=== PATIENT | female | born 1970 | race Caucasian/White ===

== ENCOUNTER 2020-06-20 11:28 | Emergency (ER) | payer OTHER, SELFPAY ==
[2020-06-20 11:29] VITALS: BP 119/75; PULSE 77; RESP 17; TEMP 36.4; O2SAT 97; BMI 36.1
--- NOTE | 2020-06-20 11:49 | RAD_ITS ---
STUDY: X-RAY - RIGHT KNEE REASON FOR EXAM: Female, 50 years old. Injury/Pain TECHNIQUE: 4 view(s) of the knee. COMPARISON: None. FINDINGS: Normal visualized distal femur. Normal visualized proximal tibia and fibula. Normal proximal tibiofibular articulation. There is no demonstrated fracture. Normal medial femorotibial compartment. Normal lateral femorotibial compartment. There is mild degenerative arthrosis of the patellofemoral articulation. The soft tissue structures are unremarkable. RAD/Knee 4 or More Views IMPRESSION: No fracture. Mild patellofemoral arthrosis. Electronically Signed: Edwin Bustos MD at 12:54 EDT , Service support ,
--- NOTE | 2020-06-20 11:49 | ED.VISSUMM ---
- ER Visit Summary Date of Service: 06/20/20 Chief Complaint: Fall History of Present Illness: The patient is a 50 F who presents after a fall that occurred today. Patient states she was walking her dog when her dog started to run away. Patient states the dog pulled on her and caused her to fall. Patient hit her head and face. Patient also complains of pain in her right knee. Patient describes the pain in her face is burning. Patient states the pain in her knee is sharp and aching. Patient states the pain is worse with any weightbearing. Patient denies any loss of consciousness. Patient denies any paresthesias or weakness. Patient is unsure of her last tetanus. Physical Examination: Vital signs are stable. Patient is afebrile. Patient is in no acute distress. Skin is warm and dry. There is a 3 cm abrasion over the forehead with some loss of tissue. There is minimal bleeding. There is no bony crepitance or step-off. There is also a superficial abrasion over the bridge of the nose. There is no bleeding noted. There is no edema or ecchymosis. There is no deformity. There is no septal deviation or septal hematoma. Cranial nerves II through XII are intact. There are no focal motor or sensory deficits noted. Neck is supple. Trachea is midline. There is no JVD. Heart was regular rate and rhythm. Lungs are clear and equal bilaterally. Abdomen is soft. Bowel sounds are normal. There is no tenderness. Remedies are intact. There is tenderness, edema, and ecchymosis over the anterior aspect of the right knee. There is a superficial abrasion. There is no bony crepitance or step-off. Range of motion was limited in all motions of the right knee secondary to pain. Extensor mechanism is intact. Test Results: X-rays of the right knee were obtained. There are 4 views. On my interpretation, there is no acute fracture. There are some mild degenerative changes. There is no effusion. Radiologist also interpreted the x-ray and agrees. Emergency Department Course and Treatment: Patient was given a tetanus booster. LET gel was applied to the forehead. The wound was cleaned. The wound does not require laceration repair. The other wounds were cleaned and dressed. Patient was instructed to ice and elevate the right knee. Patient was instructed to take Tylenol or ibuprofen as needed for pain. Patient was instructed to return if worse in any way. Patient understood and was agreeable with the plan. All questions were answered. Disposition: Discharge home Impression: 1. Right knee contusion 2. Closed head injury 3. Forehead abrasion This note was generated with [employer] dictation software. It may contain incorrect words, spelling, and punctuation that were not noted in review of the chart prior to signing ED Disposition - Plan for ED Patient: Disposition: Home or Assisted Living Diagnosis: Forehead abrasion, Closed head injury, Contusion of right knee, initial encounter Instructions: ED Head Injury (Adult), ED Abrasion Referrals: Clemente Zepeda MD [STAFF PHYSICIAN] - 5-7 Days
[2020-06-20] MEDS: Lidocaine/Epi/Tetracaine 50 ML 1 APPLIC TOPICAL (12:04)
[2020-06-20 13:54] VITALS: BP 118/61; PULSE 77; RESP 11; O2SAT 99
== END 2020-06-20 14:02 | disposition home or self-care (01) ==
PROVIDERS: Emergency Provider Emergency Medicine
DX: S00.81XA Abrasion of other part of head, initial encounter (principal); S00.31XA Abrasion of nose, initial encounter; S80.01XA Contusion of right knee, initial encounter; W01.10XA Fall on same level from slipping, tripping and stumbling with subsequent striking against unspecified object, initial encounter; Y93.K1 Activity, walking an animal; Y92.9 Unspecified place or not applicable; Y99.9 Unspecified external cause status; Z23 Encounter for immunization; Z72.0 Tobacco use
CPT/HCPCS: 73564; 99284